=== PATIENT | female | born 1950 | race Caucasian/White ===

== ENCOUNTER → 2017-10-25 | Outpatient (CLI) | payer OTHER ==
[2017-10-26 03:59] LABS: Source Cervix
[2017-10-26 12:26] LABS: HPV Genotype 16 Not Detected (NOTDET); HPV Genotype 18 Not Detected (NOTDET)
[2017-10-31 08:22] LABS: HPV High Risk Other Not Detected (NOTDET)
== END ==
LOC: LAB SHORT 11:15 → LAB 11:15
PROVIDERS: Registered Nurse Community Health
DX: Z12.4 Encounter for screening for malignant neoplasm of cervix (principal)
CPT/HCPCS: 87624; G0123

== ENCOUNTER 2021-01-12 08:30 | Inpatient (IN) | payer OTHER ==
[~2021-01-12] VITALS: Ht 170.2 cm; Wt 73.1 kg
[~2021-01-12 08:30] MED LIST: EUTHYROX50 MCG PO; Prinivil10 MG PO; ZOCOR20 MG PO
--- NOTE | 2021-01-12 09:32 | NUR ---
History, Chart, Medications and Allergies reviewed before start of procedure.Patient confirms NPO status and agrees with scheduled surgery. Pre-Op teaching done. Pt verbalizes understanding. Patient States Post-Procedure ride home has been arranged.
--- NOTE | 2021-01-12 13:14 | NUR ---
PT ARRIVED TO ROOM AT APROX 1300 FROM PACU. AASHISH PAD WITH NO DRAINAGE PRESENT. C/O 09/24 "CRAMPING PAIN", REPORTS TOLERABLE AT THIS TIME, HEATING PAD APPLIED. GARCIA PATENT, DRAINING CLEAR YELLOW URINE
--- NOTE | 2021-01-12 19:38 | NUR ---
SHIFT SUMMARY PT A&OX4, VSS, S/P VAG HYSTER/A&P, PERIPAD WITH SCANT DRAINAGE. PAIN MANAGED WITH TYLENOL AND TORADOL. JA PO REG DIET. GARCIA PATENT & DRAINING YELLOW URINE, STAT LOCK ON, OFF FLOOR. IVF LR @ 125 MLS/HR. AMB/STAND, UP TO CHAIR/BED. REPORT PROVIDED TO JESSIE BELL.
--- NOTE | 2021-01-13 04:25 | NUR ---
SHIFT SUMMARY: PT POD#1 FOR VAGINAL HYSTERECTOMY+A&P REPAIR. AASHISH PAD CHANGED ONCE THIS SHIFT. SMALL AMOUNT OF BLOODY DRG NOTED. PAIN BEING MANAGED WITH OXYCODONE AND TYLENOL PER EMAR. PT REPORTS PASSING A SMALL AMOUNT OF FLATUS. ACTIVE BT X4. TOLERATING PO FLUIDS THROUGHOUT NIGHT. IVF INFUSING PER EMAR. GARCIA DRAINING LIGHT YELLOW URINE. WILL REMOVE CATHETER THIS AM. PLAN FOR POSSIBLE DISCHARGE TODAY.
[2021-01-13] MEDS ORDERED: MASOPHEN500 MG PO (09:35)
[2021-01-13] MEDS ORDERED: DOCU100 PO (09:36)
[2021-01-13] MEDS ORDERED: IBUP600 PO (09:36)
[2021-01-13] MEDS ORDERED: OXAYDO5 MG PO (09:38)
--- NOTE | 2021-01-13 10:53 | NUR ---
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 DC INSTRUCTIONS PROVIDED. PT REP UNDERSTANDING THOSE INSTRUCTIONS INCLUDING NOTHING PER VAGINA X 6WKS, 2WK/6WK FOLLOW UP APPOINTMENT. IV DC'D.
== END 2021-01-13 11:00 | disposition home or self-care (01) | DRG 743 ==
LOC: SURS 08:30 → PRE IP 10:00 → SURS 12:42
PROVIDERS: ADMIT Obstetrics & Gynecology
PROC: 0UT97ZZ Resection of Uterus, Via Natural or Artificial Opening (ICD-10-PCS; principal; 2021-01-12 10:00)
PROC: 0UQF7ZZ Repair Cul-de-sac, Via Natural or Artificial Opening (ICD-10-PCS; 2021-01-12 10:00)
DX: N81.4 Uterovaginal prolapse, unspecified (principal); N81.6 Rectocele; F17.210 Nicotine dependence, cigarettes, uncomplicated; E78.00 Pure hypercholesterolemia, unspecified; I10 Essential (primary) hypertension; E78.5 Hyperlipidemia, unspecified; E03.9 Hypothyroidism, unspecified; L40.9 Psoriasis, unspecified; Z88.5 Allergy status to narcotic agent; Z98.51 Tubal ligation status; Z98.890 Other specified postprocedural states; Z79.82 Long term (current) use of aspirin; Z79.899 Other long term (current) drug therapy
CPT/HCPCS: 88108; 88307; A9270; J0171; J0690; J1100; J1885; J2250; J2370; J2405; J2704; J3010; J7120

== ENCOUNTER → 2025-03-04 | Outpatient (CLI) | payer OTHER ==
[~2025-03-04] MED LIST changes: +DOCU100 PO; +IBUP600 PO; +MASOPHEN500 MG PO; +OXAYDO5 MG PO
== END ==
LOC: LAB 08:28 → LAB SHORT 08:28
DX: D23.112 Other benign neoplasm of skin of right lower eyelid, including canthus (principal)
CPT/HCPCS: 88305